=== PATIENT | male | born 1970 ===

== ENCOUNTER 2018-04-05 09:02 | Emergency (ER) | payer OTHER ==
[2018-04-05 09:15] VITALS: RESP 18; TEMP 97.8; O2SAT 99
[2018-04-05] MEDS ORDERED: Acetaminophen-Codeine 300/30 mg Tab PO STA (09:41)
[2018-04-05] MEDS ORDERED: Acetaminophen-Codeine 300/30 mg Tab PO ONE (09:46)
--- NOTE | 2018-04-05 10:53 | C.PDOC ---
History Of Present Illness 47-year-old male, presents to the emergency department with complaints of back pain x3 days. 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 Patient is currently complaining of lower back. Denies any bladder/bowel incontinence. Denies any abdominal pain, numbness/weakness, nausea/vomiting. patient did not take anything for the pain. Time Seen by Provider: 04/05/18 09:20 Chief Complaint (Nursing): Back Pain History Per: Patient History/Exam Limitations: no limitations Past Medical History Reviewed: Historical Data, Nursing Documentation, Vital Signs Vital Signs: Last Vital Signs Temp 97.8 F 04/05/18 09:13 Pulse 76 04/05/18 11:09 Resp 18 04/05/18 11:09 BP 134/93 H 04/05/18 11:09 Pulse Ox 99 04/05/18 12:28 Family History: States: No Known Family Hx - Social History Hx Alcohol Use: No Hx Substance Use: No - Immunization History Hx Tetanus Toxoid Vaccination: No Hx Influenza Vaccination: No Hx Pneumococcal Vaccination: No Review Of Systems Musculoskeletal: Positive for: Back Pain Physical Exam - Physical Exam Appears: Non-toxic, No Acute Distress Skin: Normal Color, Warm, Dry, No Rash Head: Normacephalic Eye(s): bilateral: PERRL Nose: Normal Oral Mucosa: Moist Neck: Normal ROM, No Midline Cervical Tenderness, No Step Off Deformity Back: No Vertebral Tenderness, Paraspinal Tenderness (lumbar) Extremity: Normal ROM, No Deformity, No Swelling Pulses: Left Dorsalis Pedis: Normal, Right Dorsalis Pedis: Normal Neurological/Psych: Oriented x3, Normal Speech ED Course And Treatment O2 Sat by Pulse Oximetry: 99 Medical Decision Making Medical Decision Making: Impression: Back pain Plan: * Flexeril, Motrin, Percocet * XR LS SPine * Reassess and Disposition Disposition Counseled Patient/Family Regarding: Studies Performed, Diagnosis, Need For Followup, Rx Given - Disposition Referrals: [facility] [Outside] Disposition: HOME/ ROUTINE Disposition Time: 10:48 Condition: STABLE Additional Instructions: follow up with medical clinic in 2 days call to make an appointment take medications as prescribed no heavy lifting return to ER if symptoms worsens or progress Prescriptions: Acetaminophen/Codeine [Tylenol/Codeine 300 MG/30 MG] 1 tab PO Q6H PRN #12 tab PRN Reason: Pain, Severe (8-10) Cyclobenzaprine [Cyclobenzaprine HCl] 10 mg PO TID PRN #15 tab PRN Reason: Pain, Moderate (4-7) Naproxen [Naprosyn] 500 mg PO BID PRN #16 tab PRN Reason: Pain, Moderate (4-7) Instructions: Low Back Pain (DC) Forms: Gen Discharge Inst [place]ian, [facility] (Namibian), Work Excuse Print Language: PASHTO - Clinical Impression Clinical Impression: Low back pain - Scribe Statement The provider has reviewed the documentation as recorded by the Scribe (Ramón Siu) All medical record entries made by the Scribe were at my direction and personally dictated by me. I have reviewed the chart and agree that the record accurately reflects my personal performance of the history, physical exam, medical decision making, and the department course for this patient. I have also personally directed, reviewed, and agree with the discharge instructions and disposition.
[2018-04-05 11:10] VITALS: BP 134/93; PULSE 76
--- NOTE | 2018-04-05 12:21 | RAD ---
PROCEDURE: Lumbar spine dated 04/05/2018 HISTORY: Back pain COMPARISON: No prior. FINDINGS: BONES: Normal alignment. No listhesis. No fracture. DISC SPACES: Disc space heights relatively maintained. Small marginal osteophyte formation seen at the L4-L5 level. Facets also slightly overgrown at L5-S1 through the L3-L4 levels in somewhat decreasing order of severity OTHER FINDINGS: None. IMPRESSION: No evidence of acute compression fractures no retropulsed fragments. Minor multilevel degenerative spondylosis
== END 2018-04-05 11:10 | disposition home or self-care (01) ==
LOC: C.ER 09:02
DX: M54.5 Low back pain (principal)